=== PATIENT | male | born 2000 | race Caucasian/White ===

== ENCOUNTER 2021-10-03 19:23 | Inpatient (IN) | payer BC ==
[2021-10-03] MEDS ORDERED: Sodium Chloride 0.9% 1,000 ML IV ONE ×2 (20:09→21:46)
[2021-10-03] MEDS ORDERED: Sodium Chloride 0.9% 10 ML Syringe FLUSH PRN (20:10)
[2021-10-03] MEDS ORDERED: Ondansetron 4 MG/2 ML SDV IVPUSH ONE (20:10)
[2021-10-03] MEDS ORDERED: Sodium Chloride 0.45% with KCl 1,000 ML IV SCH (22:15)
[2021-10-03 22:28] LABS: HEMOGLOBIN A1C 8.9 %
[2021-10-03] MEDS ORDERED: Ondansetron 4 MG/2 ML SDV IVPUSH PRN (23:24)
[2021-10-03] MEDS ORDERED: Sodium Chloride 0.9% 1,000 ML IV SCH (23:30)
[2021-10-04] MEDS: Insulin Glargine,Human Rec. Analog 100 Units/ML 3 ML Pen SUBCUT SCH ×2 (00:19→21:10)
[2021-10-04] MEDS: Insulin Lispro 100 Unit/ML 3 ML KwikPen SUBCUT SCH ×6 (01:07→21:22)
[2021-10-04] MEDS ORDERED: Lactated Ringers 1,000 ML IV ONE ×5 (07:59→13:20)
[2021-10-04] MEDS ORDERED: Acetaminophen 325 MG Tab PO PRN (09:32)
[2021-10-04] MEDS ORDERED: Lactated Ringers 1,000 ML IV SCH (14:45)
[2021-10-05] MEDS: Benzocaine/Cetylpyridinium/Menthol Lozenge MUCMEM PRN ×3 (00:38→08:10)
[2021-10-05] MEDS: Insulin Lispro 100 Unit/ML 3 ML KwikPen SUBCUT SCH ×2 (08:11→11:58)
== END 2021-10-05 12:15 | disposition home or self-care (01) | DRG 420 ==
LOC: JD.ED 19:23 → JD.MS 22:38
PROVIDERS: ADMIT Pediatrics; ATTEND Pediatrics
DX: E10.10 Type 1 diabetes mellitus with ketoacidosis without coma (principal); R79.89 Other specified abnormal findings of blood chemistry; D72.829 Elevated white blood cell count, unspecified; F41.9 Anxiety disorder, unspecified; R11.14 Bilious vomiting; F84.0 Autistic disorder; E86.0 Dehydration; Z91.14 Patient's other noncompliance with medication regimen; Z79.4 Long term (current) use of insulin
CPT/HCPCS: 36415; 36600; 80048; 80053; 81001; 82009; 82803; 82947; 83036; 83605; 83735; 85025; 86140; 96365; 96375; 99284-25; A9270-GY; J1815; J1815-GY; J2405; J3480; J3490; J7030; J7120

== ENCOUNTER 2022-04-16 17:24 | Emergency (ER) | payer MEDICAID ==
[2022-04-16] MEDS ORDERED: Sodium Chloride 0.9% 10 ML Syringe FLUSH PRN (18:51)
[2022-04-16] MEDS ORDERED: Sodium Chloride 0.9% 1,000 ML IV ONE (19:10)
== END 2022-04-16 21:41 | disposition home or self-care (01) ==
LOC: JD.ED 17:24
DX: E10.65 Type 1 diabetes mellitus with hyperglycemia (principal); E10.10 Type 1 diabetes mellitus with ketoacidosis without coma
CPT/HCPCS: 36415; 36600; 80053; 81001; 82009; 82803; 82947; 83605; 83735; 84484; 85025; 87040; 96360; 99284; J7030

== ENCOUNTER 2022-10-22 21:44 | Emergency (ER) | payer BC, MEDICAID ==
[2022-10-22] MEDS ORDERED: Insulin Lispro Protamine/Lispro 75-25 100 Units/ML 10 ML Vial SUBCUT ONE (22:04)
[2022-10-22] MEDS ORDERED: Insulin Lispro 100 Unit/ML 3 ML KwikPen SUBCUT ONE (22:57)
== END 2022-10-22 23:52 | disposition home or self-care (01) ==
LOC: JD.ED 21:44
DX: E10.9 Type 1 diabetes mellitus without complications (principal); Z76.0 Encounter for issue of repeat prescription
CPT/HCPCS: 99281; A9270; J1815; 99282

== ENCOUNTER 2022-12-15 16:53 | Emergency (ER) | payer MEDICAID | END 2022-12-15 18:01 | disposition home or self-care (01) | LOC: JD.ED 16:53 | DX: E10.9 Type 1 diabetes mellitus without complications (principal); Z79.4 Long term (current) use of insulin | CPT/HCPCS: 82947; 99282 ==

== ENCOUNTER 2024-11-12 16:27 | Emergency (ER) | payer SELFPAY ==
[2024-11-12] MEDS: Insulin Lispro 100 Unit/ML 3 ML KwikPen SUBCUT ONE (17:04)
== END 2024-11-12 17:09 | disposition home or self-care (01) ==
LOC: JD.ED 16:27
DX: E10.9 Type 1 diabetes mellitus without complications (principal); Z79.4 Long term (current) use of insulin
CPT/HCPCS: 99281; J1815; 99283